=== PATIENT | male | born 1990 | race Two or more races ===

== ENCOUNTER 2018-01-01 15:59 | Emergency (ER) | payer BC ==
[2018-01-01] MEDS ORDERED: KETOROLAC 15 MG/1 ML SDV IVP ONE (16:11)
[2018-01-01] MEDS ORDERED: NS 1,000 ML IV ONE (16:11)
--- NOTE | 2018-01-01 16:12 | EDPHY ---
H & P Stated Complaint: RLQ/R testicle pain Time Seen by Provider: 01/01/18 16:05 HPI/ROS: CHIEF COMPLAINT: Right lower quadrant abdominal pain, right testicle pain HISTORY OF PRESENT ILLNESS: 27-year-old male released from skilled nursing earlier today complaining of right testicle pain, right lower abdominal pain. Notes a multiyear history of right inguinal hernia that he is usually able to reduce himself however is unable to reduce this for the past several days. No nausea or vomiting. He last ate at 4:00 p.m. today. Bowel movements normal. No fever no chills. No abdominal or testicular trauma. No history of abdominal surgeries. No urinary abnormality. No back or flank pain. No myalgias no flu- like symptoms. Bowel movements normal. Passing gas as normal. No melena hematochezia. PRIMARY CARE PROVIDER: REVIEW OF SYSTEMS: A ten point review of systems was performed and is negative with the exception of the items mentioned in the HPI PAST MEDICAL & SURGICAL HISTORY: No pertinent medical or surgical history SOCIAL HISTORY: Daily tobacco PHYSICAL EXAM (Prior to examination, patient consented to physical exam, hands were washed and my usual and customary physical exam procedures followed) 1) GENERAL: Well-developed, well-nourished, alert and oriented. Appears to be in no acute distress. 2) HEAD: Normocephalic, atraumatic 3) HEENT: Pupils equal, round, reactive to light bilaterally. Sclera anicteric. [Nasopharynx, oropharynx, clear, no lesions. Moist mucous membranes 4) NECK: Full range of motion, no meningeal signs. 5) LUNGS: Clear auscultation bilaterally, no wheezes, no rhonchi, no retractions. 6) HEART: Regular rate and rhythm, no murmur, no heave, no gallop. 7) ABDOMEN: No guarding, no rebound, focally tender to palpation right lower quadrant,, negative Boswell's, negative Rovsing's, negative peritoneal sign, 8) MUSCULOSKELETAL: Moving all extremities, no focal areas of tenderness, no obvious trauma. No peripheral edema or discoloration. 9) BACK: No CVA tenderness, no midline vertebral tenderness, no fluctuance, no step-off, no obvious trauma, no visual or palpable abnormality. 10) SKIN: No rash, no petechiae. 11) : Right hemiscrotal swelling, mass noted, unable to reduce this. No overlying skin changes. No signs of cellulitis or Avril's gangrene. No signs of gangrene DIFFERENTIAL DIAGNOSIS: [My differential diagnosis includes, but is not limited to, incarcerated hernia, acute appendicitis, acute cholecystitis, bowel obstruction, acute pancreatitis, testicular torsion The patient understands that this diagnosis is provisional and can never be 100% accurate. This is a partial list of diagnoses considered. These considerations are based on history , physical exam, past history and reassessment. ] - Personal History Current Tetanus/Diphtheria Vaccine: Yes Current Tetanus Diphtheria and Acellular Pertussis (TDAP): Yes - Medical/Surgical History Hx Asthma: No Hx Chronic Respiratory Disease: No Hx Diabetes: No Hx Cardiac Disease: No Hx Renal Disease: No Hx Cirrhosis: No Hx Alcoholism: No Hx HIV/AIDS: No Hx Splenectomy or Spleen Trauma: No Other PMH: denies - Social History Smoking Status: Current every day smoker Constitutional: Initial Vital Signs Temperature (C) 36.4 C 01/01/18 16:03 Heart Rate 68 01/01/18 16:03 Respiratory Rate 16 01/01/18 16:03 Blood Pressure 121/65 H 01/01/18 16:03 O2 Sat (%) 98 01/01/18 16:03 O2 Delivery Mode Room Air Allergies/Adverse Reactions: No Known Allergies Allergy (Unverified 01/01/18 16:02) Home Medications: Medication Instructions Recorded Ibuprofen [Motrin (*)] 800 mg PO Q6 #15 tab 01/01/18 Medical Decision Making - Diagnostics Imaging Results: Imaging Impressions Abdomen CT 01/01/18 16:11 Impression: 1. Large inguinal hernia on the right extending into the scrotal sac containing omentum without inclusion of bowel. 2. No CT evidence of appendicitis, abscess or bowel obstruction. Findings discussed with Victor Manuel SOLARES at 18:03 hour, 01/01/2018. Testicular Ultrasound 01/01/18 16:11 Impression: 1. Normal sonographic appearance of the testes, with no mass or torsion. 2. There is a 14.0 x 7.1 x 5.2 cm heterogeneous predominantly echogenic masslike area in the right inguinal canal extending to the cephalad portion of the right testis, which could represent omental fat herniation although it would be difficult to entirely exclude entrapment of an aperistaltic loop of bowel within this large mass. Findings were discussed with Ange Cespedes PA-C at 17:27, on 01/01/2018. Images reviewed myself ED Course/Re-evaluation: 4:14 p.m.: Last oral intake was 4:00 p.m. , shortly before entering the ER. Will obtain imaging studies, remains NPO. I saw this patient independently based on established practice protocols. Care of patient under supervision of primary supervising physician Dr De La Torre with whom I discussed case. 6:10 p.m.: Phone consultation with Dr. Aguayo general surgery, discussed the imaging and clinical findings. He recommended outpatient follow-up this week ( today is Monday). I discussed this with the patient. At this time the patient has no overlying skin changes, no signs of gangrene.Doubt acute appendicitis. 6:20 p.m.: Re-evaluation discussed the imaging results and plan with the patient. At this time he is comfortable watching TV. He feels comfortable being discharged. Stressed the importance of follow-up with General surgery. If any point he develops fever chills nausea vomiting inability to pass bowel movement or gas or any other symptoms to return to ER for re-evaluation. Tylenol and Motrin for pain. - Data Points Laboratory Results: Laboratory Results 01/01/18 16:16 01/01/18 16:16 01/01/18 01/01/18 01/01/18 16:23 16:16 16:16 WBC 6.25 10^3/uL 10^3/uL (3.80-9.50) RBC 5.09 10^6/uL 10^6/uL (4.40-6.38) Hgb 15.6 g/dL g/dL (13.7-17.5) POC Hgb 15.3 gm/dL gm/dL (13.7-17.5) Hct 45.6 % % (40.0-51.0) POC Hct 45 % % (40-51) MCV 89.6 fL fL (81.5-99.8) MCH 30.6 pg pg (27.9-34.1) MCHC 34.2 g/dL g/dL (32.4-36.7) RDW 12.9 % % (11.5-15.2) Plt Count 204 10^3/uL 10^3/uL (150-400) MPV 9.9 fL fL (8.7-11.7) Neut % (Auto) 59.4 % % (39.3-74.2) Lymph % (Auto) 31.5 % % (15.0-45.0) [place] % (Auto) 6.6 % % (4.5-13.0) Eos % (Auto) 1.3 % % (0.6-7.6) Baso % (Auto) 0.6 % % (0.3-1.7) Nucleat RBC Rel Count 0.0 % % (0.0-0.2) Absolute Neuts (auto) 3.71 10^3/uL 10^3/uL (1.70-6.50) Absolute Lymphs (auto) 1.97 10^3/uL 10^3/uL (1.00-3.00) Absolute Monos (auto) 0.41 10^3/uL 10^3/uL (0.30-0.80) Absolute Eos (auto) 0.08 10^3/uL 10^3/uL (0.03-0.40) Absolute Basos (auto) 0.04 10^3/uL 10^3/uL (0.02-0.10) Absolute Nucleated RBC 0.00 10^3/uL 10^3/uL (0-0.01) Immature Gran % 0.6 % % (0.0-1.1) Immature Gran # 0.04 10^3/uL 10^3/uL (0.00-0.10) POC Sodium 143 mEq/L mEq/L (135-145) Sodium 140 mEq/L mEq/L (135-145) POC Potassium 4.2 mEq/L mEq/L (3.3-5.0) Potassium 4.6 mEq/L mEq/L (3.3-5.0) POC Chloride 104 mEq/L mEq/L (97-110) Chloride 107 mEq/L mEq/L (97-110) Carbon Dioxide 26 mEq/l mEq/l (22-31) Anion Gap 7 mEq/L L mEq/L (8-16) POC BUN 9 mg/dL mg/dL (7-23) BUN 10 mg/dL mg/dL (7-23) Creatinine 0.9 mg/dL mg/dL (0.7-1.3) POC Creatinine 0.9 mg/dL mg/dL (0.7-1.3) Estimated GFR > 60 Glucose 86 mg/dL mg/dL (70-100) POC Glucose 91 mg/dL mg/dL (70-100) Calcium 10.0 mg/dL mg/dL (8.5-10.4) Total Bilirubin 0.4 mg/dL mg/dL (0.1-1.4) Conjugated Bilirubin 0.3 mg/dL mg/dL (0.0-0.5) Unconjugated Bilirubin 0.1 mg/dL mg/dL (0.0-1.1) AST 19 IU/L IU/L (17-59) ALT 26 IU/L IU/L (21-72) Alkaline Phosphatase 62 IU/L IU/L (38-126) Total Protein 6.7 g/dL g/dL (6.3-8.2) Albumin 4.1 g/dL g/dL (3.5-5.0) Lipase 137 IU/L IU/L (23-300) Medications Given: Discontinued Medications Sodium Chloride (Ns) 1,000 mls @ 0 mls/hr IV ONCE ONE PRN Reason: Wide Open Stop: 01/01/18 16:12 Last Admin: 01/01/18 16:16 Dose: 1,000 mls Ketorolac Tromethamine (Toradol) 15 mg IVP EDNOW ONE Stop: 01/01/18 16:12 Last Admin: 01/01/18 16:17 Dose: 15 mg Point of Care Test Results: Chemistry 01/01/18 16:23 POC Sodium 143 mEq/L mEq/L (135-145) POC Potassium 4.2 mEq/L mEq/L (3.3-5.0) POC Chloride 104 mEq/L mEq/L (97-110) POC BUN 9 mg/dL mg/dL (7-23) POC Creatinine 0.9 mg/dL mg/dL (0.7-1.3) POC Glucose 91 mg/dL mg/dL (70-100) ISTAT H&H 07/09/18 16:23 POC Hgb 15.3 gm/dL gm/dL (13.7-17.5) POC Hct 45 % % (40-51) Departure - Departure Disposition: Home, Routine, Self-Care Clinical Impression: Inguinal hernia of left side without obstruction or gangrene Condition: Good Instructions: Inguinal Hernia (ED) Additional Instructions: Seek immediate medical attention if you develop new or worsening symptoms, if you develop fevers, chills, inability to tolerate oral intake or any other symptoms that concerns you. Wear an athletic supporter or brief style underwear Referrals: George Aguayo MD [Medical Doctor] - 2-3 days, call for appt. Prescriptions: Ibuprofen [Motrin (*)] 800 mg PO Q6 #15 tab
[2018-01-01 16:26] LABS: PLATELET COUNT 204 10^3/uL (150-400)
[2018-01-01] MEDS ORDERED: IOPAMIDOL (ISOVUE-300) 100 ML BTL ONE (16:46)
[2018-01-01 17:25] VITALS: BP 112/59
== END 2018-01-01 18:41 | disposition home or self-care (01) ==
DX: K40.90 Unilateral inguinal hernia, without obstruction or gangrene, not specified as recurrent (principal); F17.200 Nicotine dependence, unspecified, uncomplicated
CPT/HCPCS: 82435-PO; 82565-PO; 82947-PO; 84132-PO; 84295-PO; 84520-PO; 85014-PO; 96374; J1885; Q9967